=== PATIENT | female | born 1990 | race Caucasian/White ===

== ENCOUNTER 2018-01-18 18:08 | Emergency (ER) | payer MEDICAID ==
[2018-01-18 18:29] VITALS: TEMP 98.4
[2018-01-18] MEDS ORDERED: Sodium Chloride 0.9% 1,000 ML IV STA (18:33)
[2018-01-18] MEDS ORDERED: Alum-Mag Hydrox-Simethicone Susp (30 mL) PO STA (18:33)
--- NOTE | 2018-01-18 18:40 | C.PDOC ---
History Of Present Illness 27 year old female with no past medical history presents to the emergency department with complaints of abdominal pain for the last day. Patient reports that she has been nauseous, and that she has had four episodes of non-bloody vomiting. Patient complains of epigastric pain that is intermittent and worse after eating. Patient denies feve, chills, chest pain, shortness of breath, diarrhea, dysuria, and vaginal bleeding. Time Seen by Provider: 01/18/18 18:23 Chief Complaint (Nursing): Abdominal Pain History Per: Patient History/Exam Limitations: no limitations Onset/Duration Of Symptoms: Days (1) Current Symptoms Are (Timing): Still Present Context: Food Location Of Pain/Discomfort: Epigastric Radiation Of Pain To:: None Quality Of Discomfort: "Pain" Associated Symptoms: Nausea, Vomiting. denies: Fever, Diarrhea, Chest Pain, Urinary Symptoms Past Medical History Reviewed: Historical Data, Nursing Documentation, Vital Signs Vital Signs: Last Vital Signs Temp 98.4 F 01/18/18 18:29 Pulse 61 01/18/18 18:29 Resp 18 01/18/18 18:29 BP 97/61 L 01/18/18 18:29 Pulse Ox 100 01/18/18 18:43 - Medical History PMH: Bipolar Disorder Surgical History: No Surg Hx - [facility] Procedures INJECT/INFUSE NEC (04/20/15) Family History: States: No Known Family Hx - Social History Hx Alcohol Use: Yes Hx Substance Use: Yes - Immunization History Hx Tetanus Toxoid Vaccination: No Hx Influenza Vaccination: No Hx Pneumococcal Vaccination: No Review Of Systems Except As Marked, All Systems Reviewed And Found Negative. Constitutional: Negative for: Fever Cardiovascular: Negative for: Chest Pain Respiratory: Negative for: Shortness of Breath Gastrointestinal: Positive for: Nausea, Vomiting, Abdominal Pain. Negative for : Diarrhea Genitourinary: Negative for: Dysuria, Vaginal Bleeding Physical Exam - Physical Exam Gastrointestinal/Abdominal: Tenderness (epigastric), No Guarding, No Rebound Additional Physical Exam Comments: Constitutional: No acute distress. Head: Normocephalic. Atraumatic. Eyes: PERRL. ENT: Moist mucous membranes. Imm Neck: Supple. Cardiovascular: Regular rate. Radial pulse 2+ bilaterally. Chest: No tenderness. Respiratory: Clear to auscultation bilaterally. GI: Soft. Nontender. Nondistended. Back: No CVA tenderness. Musculoskeletal: No tenderness or swelling of extremities. Skin: No rash. Neurologic: Alert, no focal deficit. ED Course And Treatment - Laboratory Results Result Diagrams: 01/18/18 19:17 01/18/18 19:17 O2 Sat by Pulse Oximetry: 100 (RA) Pulse Ox Interpretation: Normal Medical Decision Making Medical Decision Making: Plan: CMP Lipase CBC Maalox 30ml PO Protonix 40mg IVP NaCl IV Fluids Zofran INJ Urine Culture Urinalysis Patient states she feels much better after medications. Advised GI f/u. Disposition - Disposition Referrals: Abran Condon MD [Staff Provider] - Disposition: HOME/ ROUTINE Disposition Time: 21:54 Condition: STABLE Prescriptions: Famotidine/Ca Carb/Mag Hydrox [Pepcid Complete Tablet Chew] 1 each PO BID #[id number] tab.chew Instructions: Gastritis Forms: [facility] (Chinese) - Clinical Impression Clinical Impression: Epigastric pain - Scribe Statement The provider has reviewed the documentation as recorded by the Scribe (Brandon Jennings) Provider Attestation: All medical record entries made by the Scribe were at my direction and personally dictated by me. I have reviewed the chart and agree that the record accurately reflects my personal performance of the history, physical exam, medical decision making, and the department course for this patient. I have also personally directed, reviewed, and agree with the discharge instructions and disposition.
[2018-01-18 19:15] LABS: HCG,QUALITATIVE URINE NEGATIVE (NEGATIVE)
[2018-01-18 19:20] LABS: BASO # 0.1 K/uL (0.0-0.2); BASO % 0.5 % (0.0-2.0); EOS # 0.1 K/uL (0.0-0.7); EOS % 0.5 % (0.0-4.0); HEMOGLOBIN 12.9 g/dL (11.0-16.0); LYMPH # 1.8 K/uL (1.0-4.3); LYMPH % 16.4 % (20.0-40.0); MEAN CELL VOLUME 86.9 fL (81.0-99.0); MEAN CORPUSCULAR HEMOGLOBIN 29.5 pg (27.0-31.0); MEAN CORPUSCULAR HGB CONC 33.9 g/dL (33.0-37.0); MEAN PLATELET VOLUME 10.8 fL (7.2-11.7); MONO # 0.3 K/uL (0.0-0.8); MONO % 2.9 % (0.0-10.0); NEUT # 8.8 K/uL (1.8-7.0); NEUT % 79.7 % (50.0-75.0); RBC 4.38 Mil/uL (3.80-5.20); RED CELL DISTRIBUTION WIDTH 12.9 % (11.5-14.5)
[2018-01-18 19:26] LABS: SQUAMOUS EPITHIAL 17 /hpf (0-5); URINE BILIRUBIN NEGATIVE (NEGATIVE); URINE BLOOD NEGATIVE (NEGATIVE); URINE CLARITY Hazy (Clear); URINE COLOR Yellow (YELLOW); URINE GLUCOSE (UA) NORMAL (Normal); URINE LEUKOCYTE ESTERASE TRACE Leu/uL (Negative); URINE PROTEIN NEGATIVE (NEGATIVE); URINE UROBILINOGEN NORMAL mg/dL (0.2-1.0)
[2018-01-18 19:38] LABS: ALB/GLOB RATIO 1.2 (1.0-2.1); ALBUMIN 3.9 g/dL (3.5-5.0); ALT/SGPT 20 U/L (9-52); AST/SGOT 22 U/L (14-36); BLOOD UREA NITROGEN 8 mg/dL (7-17); CALCIUM 9.1 mg/dl (8.6-10.4); GFR AFRICAN-AMERICAN > 60; GFR NON-AFRICAN AMERICAN > 60; LIPASE 34 U/L (23-300)
[2018-01-18] MEDS ORDERED: Alum-Mag Hydrox-Simethicone Susp (30 mL) ONE (19:59)
[2018-01-18 22:26] VITALS: RESP 20
[2018-01-18 22:30] VITALS: BP 108/78; PULSE 78; O2SAT 97
== END 2018-01-18 22:28 | disposition home or self-care (01) ==
LOC: C.ER 18:08
DX: R10.13 Epigastric pain (principal)
CPT/HCPCS: 80053; 81001; 83690; 84703; 85025; 87086; 96374; 96375; 99285; C9113; J2405; J7030